=== PATIENT | male | born 1975 | race Two or more races ===

== ENCOUNTER 2023-02-24 14:41 | Emergency (ER) | payer SELFPAY | END 2023-02-24 15:14 | disposition home or self-care (01) | LOC: MW.ED 14:41 | DX: Z76.0 Encounter for issue of repeat prescription (principal) | CPT/HCPCS: 99281; 99283 ==

== ENCOUNTER 2024-10-14 15:41 | Emergency (ER) | payer SELFPAY | END 2024-10-14 16:48 | disposition home or self-care (01) | LOC: MW.ED 15:41 | DX: N40.0 Benign prostatic hyperplasia without lower urinary tract symptoms (principal); Z76.0 Encounter for issue of repeat prescription; Z79.899 Other long term (current) drug therapy | CPT/HCPCS: 99281; A9270; 99282 ==

== ENCOUNTER 2025-01-14 15:33 | Emergency (ER) | payer SELFPAY | END 2025-01-14 16:24 | disposition left against medical advice (07) | LOC: MW.ED 15:33 | DX: Z53.21 Procedure and treatment not carried out due to patient leaving prior to being seen by health care provider (principal) ==